=== PATIENT | male | born 1990 | race Asian ===

== ENCOUNTER 2018-08-13 11:31 | Emergency (ER) | payer OTHER, MEDICAID, SELFPAY ==
[2018-08-13 11:39] VITALS: BP 170/112; PULSE 79; RESP 20; TEMP 36.6; O2SAT 97; BMI 39.4
--- NOTE | 2018-08-13 11:40 | ED.MALEGU ---
HPI - Male Genitourinary <EMMA Nation - Last Filed: 08/13/18 12:50> General Chief complaint: Urogenital-Male Stated complaint: Urination/blood/pain Time Seen by Provider: 08/13/18 11:33 Source: patient Mode of arrival: ambulatory Limitations: no limitations History of Present Illness HPI Narrative: The patient is a 28-year-old nonsmoker male who denies medical history who presents with a chief complaint of dysuria starting this morning, hematuria starting this morning. He denies any fevers nausea vomiting diarrhea flank pain or back pain. He denies any possibility of sexually transmitted infections. He denies any pain when he is not urinating. He denies any history of urinary tract infections, kidney stones or sexually transmitted infections. He denies any rectal pain or pressure. He denies any rashes or sores. Related Data Previous Rx's Medication Instructions Recorded sulfamethoxazole-trimethoprim 1 tab PO BID #14 tab 08/13/18 [Bactrim DS] Review of Systems <EMMA Nation - Last Filed: 08/13/18 12:50> Review of Systems GENERAL: Denies chills, fatigue, malaise, fever, sweats. HEENT: Denies sinus pain, ear pain, sore throat, difficulty swallowing, dizziness. RESPIRATORY: Denies dyspnea, cough, wheezing, hemoptysis, sputum. CARDIOVASCULAR: Denies chest pain, palpitations, orthopnea, edema, GASTROINTESTINAL: Denies nausea, vomiting, abdominal pain, diarrhea, constipation, melena. : See HPI MUSCULOSKELETAL: denies weakness, joint pain, or bony pain SKIN: Denies rash, skin lesions, or other NEUROLOGIC: Denies weakness, headache, numbness, change in speech, confusion, seizures, incoordination. PSYCHIATRIC: No concerning psychosocial issues. 12 point review of systems is negative except for those stated above PFSH <EMMA Nation - Last Filed: 08/13/18 12:50> Social History Smoking Status: Never smoker Social History Smoking Status: Never smoker Exam <EMMA Nation - Last Filed: 08/13/18 12:50> Narrative Exam Narrative: GENERAL: This is a well-nourished, well-developed patient, no acute distress, appears anxious HEAD: Atraumatic. Normocephalic. No temporal or scalp tenderness. EYES: Pupils equal round and reactive. Extraocular motions intact. No scleral icterus. No injection or drainage. ENT: Nose without bleeding, purulent drainage or septal hematoma. Throat without erythema, tonsillar hypertrophy or exudate. Uvula midline. Airway patent. NECK: Trachea midline. No JVD or lymphadenopathy. Supple, nontender, no meningeal signs. CARDIOVASCULAR: Regular rate and rhythm without murmurs, gallops, or rubs. RESPIRATORY: Clear to auscultation. Breath sounds equal bilaterally. No wheezes, rales, or rhonchi. No cough. No increased respiratory effort. GASTROINTESTINAL: Abdomen soft, non-tender, nondistended. No hepato-splenomegaly, or palpable masses. No guarding. EXTREMITIES: No clubbing, cyanosis, or edema. No joint tenderness, effusion, or edema noted. BACK: Nontender without deformity or crepitance. No CVA tenderness bilaterally. NEURO: AOx3. SKIN: No rash or erythema. Initial Vital Signs Initial Vital Signs: Vital Signs Temperature 98 F 08/13/18 11:39 Pulse Rate 79 08/13/18 11:39 Respiratory Rate 20 08/13/18 11:39 Blood Pressure 170/112 H 08/13/18 11:39 Pulse Oximetry 97 08/13/18 11:39 <DO Krishna Olsen Last Filed: 08/13/18 12:54> Initial Vital Signs Initial Vital Signs: Vital Signs Temperature 98 F 08/13/18 11:39 Pulse Rate 79 08/13/18 11:39 Respiratory Rate 20 08/13/18 11:39 Blood Pressure 170/112 H 08/13/18 11:39 Pulse Oximetry 97 08/13/18 11:39 Course <NICHOL Nation-KEVIN - Last Filed: 08/13/18 12:50> Orders Ordered: ED Orders 08/13/18 11:41 Urinalysis and Microscopic Stat Urine Culture Stat Vital Signs - 8 hr 08/13/18 11:39 08/13/18 12:30 Temperature 98 F Pulse Rate 79 78 Respiratory Rate 20 Blood Pressure 170/112 H Blood Pressure [Left Arm] 162/104 H Pulse Oximetry 97 96 <DO Krishna Olsen Last Filed: 08/13/18 12:54> Orders Ordered: ED Orders 08/13/18 11:41 Urinalysis and Microscopic Stat Urine Culture Stat Vital Signs - 8 hr 08/13/18 11:39 08/13/18 12:30 Temperature 98 F Pulse Rate 79 78 Respiratory Rate 20 Blood Pressure 170/112 H Blood Pressure [Left Arm] 162/104 H Pulse Oximetry 97 96 MDM - Male Genitourinary <NICHOL Nation-BC - Last Filed: 08/13/18 12:50> Lab Data Lab Results 08/13/18 Range/Units 11:41 Urine Color Yellow Urine Appearance Clear Urine pH 6.5 (4.5-8.0) Ur Specific [place] 1.020 (1.000-1.035) Urine Protein Negative (Negative) Urine Glucose (UA) Negative (Negative) g/dL Urine Ketones Negative (NEGATIVE) Urine Occult Blood 3+ H (Negative) Urine Nitrate Negative (Negative) Urine Bilirubin Negative (NEGATIVE) Urine Urobilinogen 0.2 (0.2) E.U./dL Ur Leukocyte Esterase Trace H (NEGATIVE) Urine RBC 30-100/hpf H (0-5/HPF) Urine WBC 1-5/hpf (0-5/HPF) Ur Squamous Epith Cells 1-5 /hpf (0-5/HPF) Urine Bacteria Moderate (10-30) H (None) Ur Culture Indicated? Specimen cultured MDM Narrative Medical decision making narrative: The patient is a 28-year-old male presents with chief complaint of dysuria. His UA demonstrates concern for a urinary tract infection. He repeatedly declined sexually transmitted infection testing, systemic symptoms, or pain unless he is urinating. Thus we elected to not scan for a stone at this point in time. The patient repeatedly declined sexually transmitted infection testing, even when I stated I would let him go home and call him with results. Thus I did not get STI testing due to lack of consent. However the patient denies any sexual activity. I discussed at length establishing care with a primary care provider given that his blood pressure is high. Discussed coming back to the emergency department for any acute concerns. Discussed monitoring for flank pain, fever or any signs of worsening. No questions or concerns upon discharge. <Moo Mccracken DO - Last Filed: 08/13/18 12:54> Lab Data Lab Results 08/13/18 Range/Units 11:41 Urine Color Yellow Urine Appearance Clear Urine pH 6.5 (4.5-8.0) Ur Specific [place] 1.020 (1.000-1.035) Urine Protein Negative (Negative) Urine Glucose (UA) Negative (Negative) g/dL Urine Ketones Negative (NEGATIVE) Urine Occult Blood 3+ H (Negative) Urine Nitrate Negative (Negative) Urine Bilirubin Negative (NEGATIVE) Urine Urobilinogen 0.2 (0.2) E.U./dL Ur Leukocyte Esterase Trace H (NEGATIVE) Urine RBC 30-100/hpf H (0-5/HPF) Urine WBC 1-5/hpf (0-5/HPF) Ur Squamous Epith Cells 1-5 /hpf (0-5/HPF) Urine Bacteria Moderate (10-30) H (None) Ur Culture Indicated? Specimen cultured Discharge Plan Departure Patient Disposition: Home Clinical Impression: Urinary tract infection Qualifiers: Urinary tract infection type: site unspecified Hematuria presence: with hematuria Qualified Code(s): N39.0 - Urinary tract infection, site not specified Instructions: DI for Urinary Tract Infection (UTI) Activity Restrictions/Additional Instructions: I am starting you on an antibiotics for urinary tract infection. A urine culture is pending at this time, so this needs to be changed she will be contacted and 48-72 hours. I have given you contact information for the [facility] human resources supervisor, who can help you identify a primary care provider. Please follow up with them as your blood pressure is noted to be high here in the ER. Monitor for fever, flank pain and signs of worsening. Prescriptions: New sulfamethoxazole-trimethoprim [Bactrim DS] 800-160 mg tablet 1 tab PO BID Qty: 14 RF: 0 Referrals: [facility] [Outside] <Moo Mccracken DO - Last Filed: 08/13/18 12:54> Cosign ED Attending Marita Attestation: I was available for consultation during this patient's emergency department encounter
[2018-08-13 11:47] LABS: Appearance Urine UA CLEAR; Bilirubin Urine UA NEGATIVE (NEGATIVE); Color Urine UA YELLOW; Glucose Urine UA NEGATIVE (Negative); Ketones Urine UA NEGATIVE (NEGATIVE); Leukocyte Esterase Urine UA TRACE (NEGATIVE); Nitrite Urine UA NEGATIVE (Negative); Occult Blood Urine UA 3+ (Negative); Protein Urine UA NEGATIVE (Negative); Urobilinogen Urine UA 0.2 E.U./dL (0.2); pH Urine UA 6.5 (4.5-8.0)
[2018-08-13 11:57] LABS: Bacteria Urine Moderate (10-30); Culture Indicated Urine Specimen Cultured; RBC Urine 30-100/HPF (0-5/HPF); Squamous Epithelial Cell Urine 1-5 /HPF (0-5/HPF); WBC Urine 1-5/HPF (0-5/HPF)
[2018-08-13 12:30] VITALS: BP 162/104; PULSE 78; O2SAT 96
[2018-08-13 12:58] VITALS: BP 158/108; PULSE 69; RESP 18; TEMP 35.5; O2SAT 98
== END 2018-08-13 13:00 | disposition home or self-care (01) ==
PROVIDERS: Emergency Provider Nurse Practitioner Family
DX: N39.0 Urinary tract infection, site not specified (principal)
CPT/HCPCS: 81001; 87086; 99282; 99283

== ENCOUNTER 2024-12-05 10:25 | Emergency (ER) | payer OTHER, SELFPAY ==
[2024-12-05 10:37] VITALS: BP 167/98; PULSE 74; O2SAT 92
--- NOTE | 2024-12-05 10:38 | ED.BACK ---
HPI - Back Pain/Injury General Chief Complaint: Back Pain/Injury Stated Complaint: Lower back injury from moving heavy objects Time Seen by Provider: 12/05/24 10:35 History of Present Illness HPI Narrative: 34-year-old gentleman works at [employer] was lifting pallets today when he came home today noticed he had sharp mid to lower right side back pain for which he took 1 Aleve did not help. He has no history of back issues in the past and denies any bowel or bladder incontinence, numbness, tingling, down the legs abdominal pain, testicular pain, penile discharge. Other than what is stated 14 point review of system is negative. Related Data Previous Rx's ?Medication ?Instructions ?Recorded sulfamethoxazole 800 1 tab PO BID #14 tabs 08/13/18 mg-trimethoprim 160 mg tablet (Bactrim DS) diclofenac sodium 75 mg 75 mg PO BID PRN pain #30 tabs 12/05/24 tablet,delayed release prednisone 20 mg tablet 20 mg PO BID #10 tabs 12/05/24 Allergies Allergy/AdvReac Type Severity Reaction Status Date / Time No Known Drug Allergies Allergy Verified 12/05/24 10:41 Review of Systems Review of Systems ROS Unobtainable: All systems reviewed & are unremarkable except as noted in HPI and below Patient History Social History Smoking Status: Never smoker alcohol intake frequency: 0-2 drinks per day Exam Narrative Exam Narrative: GENERAL: [34] year old patient appears stated age. Well-developed patient, in mild distress. HEAD: Atraumatic. Normocephalic. EYES: Pupils equal round and reactive. Extraocular motions intact. No scleral icterus. No injection or drainage. EXTREMITIES: No edema or joint tenderness. BACK: Nontender without deformity or crepitance. No flank tenderness. No c/t/l midline ttp and no stepoff c/t/l spine NEURO: AOx3 GCS 15 nonfocal neuro exam SKIN: No rash or erythema of visible areas Initial Vital Signs Initial Vital Signs: Vital Signs Temperature 98.2 F 12/05/24 10:40 Pulse Rate 75 12/05/24 10:40 Respiratory Rate 18 12/05/24 10:40 Blood Pressure 167/98 H 12/05/24 10:40 Pulse Oximetry 97 12/05/24 10:40 Oxygen Delivery Method Room Air 12/05/24 10:40 Course Orders Ordered: ED Orders 12/05/24 10:45 XR lumbar spine 2-3V Stat XR thoracic spine 2V Stat Discontinued Medications Hydrocodone Bitart/Acetaminophen (Hydrocodone/Acet 5/325 Tablet) 1 tab PO NOW ONE Stop: 12/05/24 10:46 Last Admin: 12/05/24 11:17 Dose: 1 tab Documented By: GREER Ibuprofen (Ibuprofen 400 Mg Tablet) 800 mg PO NOW ONE Stop: 12/05/24 10:46 Last Admin: 12/05/24 11:17 Dose: 800 mg Documented By: SBF Vital Signs Vital signs: Vital Signs - 8 hr 12/05/24 10:40 Temperature 98.2 F Pulse Rate 75 Respiratory Rate 18 Blood Pressure 167/98 H Pulse Oximetry 97 Oxygen Delivery Method Room Air MDM - Back Pain/Injury Imaging Data Extremity x-ray #1: Radiologist's Impression: [address] [address] XRay Report Signed Patient: Gerald Kumar MR#: [id number] : 1990 Acct:[id number] Age/Sex: 34 / M Date of Service: 12/05/24 Loc: ED Accession Number: [id number] Procedure: XR lumbar spine 2-3V Ordering Provider: Nate Marin D.O. PROCEDURE: XR LUMBAR SPINE 2-3V INDICATIONS: back pain TECHNIQUE: 3 views of the lumbar spine were acquired. COMPARISON: None. FINDINGS: Bones: 5 [id number] vertebrae are present. There is normal bony alignment. No vertebral body compression fractures. No suspicious bony lesions. Soft tissues: Overlying bowel gas pattern is normal. No suspicious soft tissue calcifications. IMPRESSION: No acute bony abnormality. [facility] Narrative Medical decision making narrative: Vital signs, nurse triage note, medication list, previous ER visits, and all imaging studies reviewed. X-rays of the thoracic and lumbar spine showed no acute process. Patient given [place] and ibuprofen here will be discharged on diclofenac prednisone and muscle relaxant. Differential diagnosis includes contusion, sprain, arthritis, spondylolysis, spondylolisthesis, spondylosis Discharge Plan Departure Patient Disposition: Home Clinical Impression: Low back pain Qualifiers: Chronicity: acute Back pain laterality: right Sciatica presence: without sciatica Qualified Code(s): M54.50 - Low back pain, unspecified Instructions: DI for Low Back Pain Activity Restrictions/Additional Instructions: Return with new or worsening symptoms. Take your medicines as directed. Follow up PCP in 1-2 weeks if no improvement in symptoms. Prescriptions: New diclofenac sodium 75 mg tablet,delayed release (DR/EC) 75 mg PO BID PRN (Reason: pain) Qty: 30 0RF prednisone 20 mg tablet 20 mg PO BID Qty: 10 0RF No Action sulfamethoxazole-trimethoprim [Bactrim DS] 800-160 mg tablet 1 tab PO BID Qty: 14 0RF Stand Alone Forms: Patient Portal/API
[2024-12-05 10:40] VITALS: BP 167/98; PULSE 75; RESP 18; TEMP 36.8; O2SAT 97; BMI 41.5
--- NOTE | 2024-12-05 10:45 | DI.RAD.S_ITS ---
PROCEDURE: XR THORACIC SPINE 2V INDICATIONS: back pain TECHNIQUE: 3 views of the thoracic spine were acquired. COMPARISON: None. FINDINGS: Bones: No fractures or dislocations. No suspicious bony lesions. 12 pairs of ribs are noted, and appear intact where visualized. Soft tissues: No paravertebral stripe thickening. IMPRESSION: No acute bony abnormality. Dictated by: Francis Johansen M.D. on 12/05/2024 at 10:07 Approved by: Francis Johansen M.D. on 12/05/2024 at 10:08
--- NOTE | 2024-12-05 10:45 | DI.RAD.S_ITS ---
PROCEDURE: XR LUMBAR SPINE 2-3V INDICATIONS: back pain TECHNIQUE: 3 views of the lumbar spine were acquired. COMPARISON: None. FINDINGS: Bones: 5 [id number] vertebrae are present. There is normal bony alignment. No vertebral body compression fractures. No suspicious bony lesions. Soft tissues: Overlying bowel gas pattern is normal. No suspicious soft tissue calcifications. IMPRESSION: No acute bony abnormality. Dictated by: Francis Johansen M.D. on 12/05/2024 at 10:07 Approved by: Francis Johansen M.D. on 12/05/2024 at 10:07
[2024-12-05 11:00] VITALS: PULSE 74; O2SAT 95
[2024-12-05] MEDS: IBUPROFEN 400 MG TABLET 800 MG PO (11:17)
[2024-12-05 12:01] VITALS: BP 138/70; PULSE 76; RESP 18; TEMP 36.7; O2SAT 97
== END 2024-12-05 12:02 | disposition home or self-care (01) ==
PROVIDERS: Emergency Provider Family Medicine
DX: M54.50 Low back pain, unspecified (principal); X50.0XXA Overexertion from strenuous movement or load, initial encounter
CPT/HCPCS: 72070; 72100; 99283

== ENCOUNTER 2024-12-06 02:08 | Emergency (ER) | payer BC, SELFPAY ==
[2024-12-06 02:23] VITALS: PULSE 74; O2SAT 96
--- NOTE | 2024-12-06 02:23 | ED.GENADULT ---
HPI - General Adult General Chief complaint: Back Pain/Injury Stated complaint: Sharp back pain Time Seen by Provider: 12/06/24 02:16 History of Present Illness HPI narrative: 34 year old male seen here yesterday late morning with sharp back pain, might have slept wrong, worked at [employer] with lots of bending and twisting and turning, presented 01 31 here with back pain, had negative T-spine and L-spine x-rays and was sent home on steroids and muscle relaxant and pain medication. Still not having relief. Chart review from visit yesterday, patient was discharged on diclofenac and cyclobenzaprine and prednisone. No opiate analgesics on discharge. Patient is still having pain, we discussed injectable pain medications, oral pain medications, he would like to try oral hydrocodone/APAP. Dose given oral now, home pack also dispensed [place]/APAP 4 tablets. Follow up with PCP on Saturday advised. Related Data Previous Rx's ?Medication ?Instructions ?Recorded sulfamethoxazole 800 1 tab PO BID #14 tabs 08/13/18 mg-trimethoprim 160 mg tablet (Bactrim DS) cyclobenzaprine 10 mg tablet 10 mg PO TID PRN muscle spasm #30 12/05/24 tabs diclofenac sodium 75 mg 75 mg PO BID PRN pain #30 tabs 12/05/24 tablet,delayed release prednisone 20 mg tablet 20 mg PO BID #10 tabs 12/05/24 Allergies Allergy/AdvReac Type Severity Reaction Status Date / Time No Known Drug Allergies Allergy Verified 12/06/24 02:32 Patient History alcohol intake frequency: 0-2 drinks per day Exam Narrative Exam Narrative: GENERAL: Well-developed patient, in mild distress. HEAD: Atraumatic. Normocephalic. EYES: Pupils equal round and reactive. Extraocular motions intact. No scleral icterus. No injection or drainage. ENT: Nose without bleeding, purulent drainage. Throat without erythema, tonsillar hypertrophy or exudate. Airway patent. NECK: Trachea midline. Non tender CARDIOVASCULAR: Regular rate and rhythm without murmurs, gallops, or rubs. RESPIRATORY: Clear to auscultation. Breath sounds equal bilaterally. No wheezes, rales, or rhonchi. GASTROINTESTINAL: Abdomen soft, non-tender, nondistended. EXTREMITIES: No edema or joint tenderness. BACK: Nontender without deformity or crepitance. No flank tenderness. NEURO: AOx3. Motor functions grossly nonfocal. SKIN: No rash or erythema of visible areas Initial Vital Signs Initial Vital Signs: Vital Signs Pulse Rate 74 12/06/24 02:23 Pulse Oximetry 96 12/06/24 02:23 Course Orders Ordered: Discontinued Medications Hydrocodone Bitart/Acetaminophen (Hydrocodone/Acet 5/325 Prepack) 1 bottle MISC DIRECTED ONE Stop: 12/06/24 03:28 Last Admin: 12/06/24 03:33 Dose: 1 bottle Documented By: Hydrocodone Bitart/Acetaminophen (Hydrocodone/Acet 5/325 Tablet) 1 tab PO NOW ONE Stop: 12/06/24 03:28 Last Admin: 12/06/24 03:33 Dose: 1 tab Documented By: Vital Signs Vital signs: Vital Signs - 8 hr 12/06/24 02:24 Temperature 97.8 F Pulse Rate 73 Respiratory Rate 18 Blood Pressure 141/93 H Pulse Oximetry 96 Oxygen Delivery Method Room Air Discharge Plan Departure Patient Disposition: Home Clinical Impression: Lumbar strain Activity Restrictions/Additional Instructions: Persistent low back pain, seen here for the same problem, recent low back pain and subsequent lifting and twisting at your job [employer], yesterday imaging x-rays T-spine and lumbar spine were done and showed no acute changes. You were discharged on diclofenac and cyclobenzaprine muscle relaxant medications, and prednisone steroid. You are still having pain. We discussed different options, injectable versus oral. Declined injectable pain medications for now. Given oral dose of hydrocodone/acetaminophen, with home pack for discharge. Recheck advised with your regular doctor on Saturday. Return precautions discussed. Continue taking your previous medication diclofenac and cyclobenzaprine and prednisone. Prescriptions: No Action diclofenac sodium 75 mg tablet,delayed release (DR/EC) 75 mg PO BID PRN (Reason: pain) Qty: 30 0RF prednisone 20 mg tablet 20 mg PO BID Qty: 10 0RF cyclobenzaprine 10 mg tablet 10 mg PO TID PRN (Reason: muscle spasm) Qty: 30 0RF sulfamethoxazole-trimethoprim [Bactrim DS] 800-160 mg tablet 1 tab PO BID Qty: 14 0RF Stand Alone Forms: Patient Portal/API
[2024-12-06 02:24] VITALS: BP 141/93; PULSE 73; RESP 18; TEMP 36.6; O2SAT 96; BMI 41.5
[2024-12-06 02:30] VITALS: BP 144/96; PULSE 73; O2SAT 96
[2024-12-06 03:00] VITALS: BP 145/86; PULSE 69; O2SAT 96
[2024-12-06 03:30] VITALS: BP 141/85; PULSE 70; O2SAT 95
== END 2024-12-06 03:38 | disposition home or self-care (01) ==
PROVIDERS: Emergency Provider Emergency Medicine
DX: S39.012A Strain of muscle, fascia and tendon of lower back, initial encounter (principal); X50.1XXA Overexertion from prolonged static or awkward postures, initial encounter
CPT/HCPCS: 99283